=== PATIENT | female | born 1980 | race American Indian/Alaskan Native ===

== ENCOUNTER 2021-02-05 12:05 | Emergency (ER) | payer OTHER ==
--- NOTE | 2021-02-05 13:26 | Event Note ---
ED Screening Note Date of service: 02/05/21 Time: 13:25 ED Screening Note: Patient complains of left-sided chest pain starting this morning Denies shortness of breath History of hypertension and states she has been out of her medications for the past week due to not currently having a primary care doctor Patient normally takes lisinopril and hydrochlorothiazide She also admits to some dizziness This initial assessment/diagnostic orders/clinical plan/treatment(s) is/are subject to change based on patients health status, clinical progression and re- assessment by fellow clinical providers in the ED. Further treatment and workup at subsequent clinical providers discretion. Patient/guardian urged not to elope from the ED as their condition may be serious if not clinically assessed and managed. Initial orders include: Labs EKG Chest x-ray
--- NOTE | 2021-02-05 14:25 | XRay Report ---
CHEST 2 VIEWS INDICATION / CLINICAL INFORMATION: CHEST PAIN. COMPARISON: None available. FINDINGS: SUPPORT DEVICES: None. HEART / MEDIASTINUM: Moderate cardiomegaly LUNGS / PLEURA: No significant pulmonary or pleural abnormality. No pneumothorax. ADDITIONAL FINDINGS: No significant additional findings. IMPRESSION: 1. Cardiomegaly without CHF Signer Name: Saravanan Buitrago MD Signed: 02/05/2021 2:21 PM Workstation Name: [id number]
[2021-02-05 14:30] LABS: Basophils % (Auto) 0.6 % (0.0-1.8); Eosinophils # (Auto) 0.3 K/mm3 (0.0-0.4); Eosinophils % (Auto) 4.8 % (0.0-4.3); Hematocrit 38.4 % (30.3-42.9); Hemoglobin 12.8 gm/dl (10.1-14.3); Lymphocytes % (Auto) 30.4 % (13.4-35.0); Mean Corpuscular HGB Conc 33 % (30-34); Mean Corpuscular Volume 76 fl (79-97); Monocytes # (Auto) 0.6 K/mm3 (0.0-0.8); Monocytes % (Auto) 9.6 % (0.0-7.3); Platelet Count 260 K/mm3 (140-440); Red Blood Count 5.04 M/mm3 (3.65-5.03); Red Cell Distribution Width 16.5 % (13.2-15.2)
[2021-02-05 14:49] LABS: Alanine Aminotransferase 14 units/L (7-56); Albumin 3.8 g/dL (3.9-5); BUN/Creatinine Ratio 14; Blood Urea Nitrogen 17 mg/dL (7-17); Calcium 8.5 mg/dL (8.4-10.2); Hemolysis Index 1
--- NOTE | 2021-02-05 14:55 | Electrocardiograph Report ---
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
[2021-02-05] MEDS ORDERED: ASPIRIN 325 MG TAB PO ONE ×2 (17:01→20:13)
[2021-02-05] MEDS ORDERED: hydrALAZINE 25 MG TAB PO ONE ×2 (17:01→20:13)
--- NOTE | 2021-02-05 20:07 | Emergency Department Report ---
ED Chest Pain HPI - General Chief Complaint: Chest Pain Stated Complaint: CHEST PAIN, HEADACHE Time Seen by Provider: 02/05/21 13:24 Source: patient Mode of arrival: Ambulatory Limitations: No Limitations - History of Present Illness Initial Comments: Patient is a 40-year-old -[place] female with a history of obesity and hypertension and was noncompliant with his medications presents to the ED with complaint of acute onset persistent lightheadedness, headache, elevated blood pressure and intermittent anterior chest pain for the last 3 days. Patient states that in the last 12 hours, her lightheadedness and headache got worse and that she had to leave work to come to the ED for evaluation since her blood pressure was high. Patient states that in the last 24 hours she has not had any chest pain but decided come to the ED anyway for reevaluation and to have her blood pressure medications refilled since she had not taken blood pressure medication for the last 1 week. Patient denies dizziness, change in vision, syncope, palpitations, nausea and vomiting, diaphoresis, neck pain, jaw pain, left arm numbness and tingling or weakness, back pain, abdominal pain, fever and chills or cough. MD Complaint: chest pain, other (elevated BP, Dizziness, ran out of her BP medications) -: Sudden, days(s) (2) Onset: awoke with symptoms Pain Location: left chest Pain Radiation: none Severity: moderate Severity scale (0 -10): 3 Quality: aching Consistency: intermittent Improves With: nothing Worsens With: nothing re: denies: nausea, vomting, diaphoresis, dyspnea, sense of impending doom, other Other Symptoms: denies: cough, fever, syncope, rash, acid taste in mouth, leg swelling, palpitations, burping, other Treatments Prior to Arrival: none Aspirin use within the Past 7 Days: (0) No - Related Data On Oral Contraceptives: No Home Medications Medication Instructions Recorded Confirmed Last Taken Albuterol Sulfate [Proair 90 mcg IH QDAY 02/05/21 02/05/21 Unknown Respiclick] Previous Rx's Medication Instructions Recorded Last Taken Type Aspirin [Aspirin BABY CHEW TAB] 81 mg PO QDAY #120 02/05/21 Unknown Rx NIFEdipine [Nifedipine ER] 30 mg PO QDAY #30 tab 02/05/21 Unknown Rx Spironolactone [Aldactone] 25 mg PO QDAY #30 02/05/21 Unknown Rx carvediloL [Coreg] 25 mg PO Q12H #60 02/05/21 Unknown Rx Allergies Allergy/AdvReac Type Severity Reaction Status Date / Time No Known Allergies Allergy Verified 02/05/21 13:26 Heart Score - HEART Score History: Slightly suspicious EKG: Normal Age: < 45 Risk factors: 1-2 risk factors Troponin: < normal limit HEART Score: 1 - EKG Read Time Time EKG Completed: 00:10 EKG Read Time: 00:19 - Critical Actions Critical Actions: 0-3 pts:0.9-1.7%risk of adverse cardiac event.Candidate for discharge ED Review of Systems ROS: Stated complaint: CHEST PAIN, HEADACHE Other details as noted in HPI Constitutional: malaise, weakness, other (Elevated blood pressure). denies: chills, fever Eyes: denies: eye pain, eye discharge, vision change ENT: denies: ear pain, throat pain Respiratory: denies: cough, shortness of breath, wheezing Cardiovascular: chest pain. denies: palpitations Endocrine: no symptoms reported Gastrointestinal: denies: abdominal pain, nausea, vomiting, diarrhea Genitourinary: denies: urgency, dysuria, discharge Musculoskeletal: denies: back pain, joint swelling, arthralgia Skin: denies: rash, lesions Neurological: other (Lightheadedness). denies: headache, weakness, paresthesias Psychiatric: denies: anxiety, depression Hematological/Lymphatic: denies: easy bleeding, easy bruising ED Past Medical Hx - Past Medical History Hx Hypertension: Yes - Social History Smoking Status: Current Every Day Smoker Substance Use Type: None - Medications Home Medications: Home Medications Medication Instructions Recorded Confirmed Last Taken Type Albuterol Sulfate [Proair 90 mcg IH QDAY 02/05/21 02/05/21 Unknown History Respiclick] Aspirin [Aspirin BABY CHEW TAB] 81 mg PO QDAY #120 02/05/21 Unknown Rx NIFEdipine [Nifedipine ER] 30 mg PO QDAY #30 tab 02/05/21 Unknown Rx Spironolactone [Aldactone] 25 mg PO QDAY #30 02/05/21 Unknown Rx carvediloL [Coreg] 25 mg PO Q12H #60 02/05/21 Unknown Rx ED Physical Exam - General Limitations: No Limitations General appearance: alert, in no apparent distress - Head Head exam: Present: atraumatic, normocephalic, normal inspection - Eye Eye exam: Present: normal appearance, PERRL, EOMI Pupils: Present: normal accommodation - ENT ENT exam: Present: normal exam, normal orophraynx, mucous membranes moist, TM's normal bilaterally, normal external ear exam - Neck Neck exam: Present: normal inspection, full ROM - Respiratory Respiratory exam: Present: normal lung sounds bilaterally. Absent: respiratory distress, wheezes, rales, rhonchi, chest wall tenderness, accessory muscle use, decreased breath sounds, prolonged expiratory - Cardiovascular Cardiovascular Exam: Present: regular rate, normal rhythm, normal heart sounds. Absent: systolic murmur, diastolic murmur, rubs, gallop - GI/Abdominal GI/Abdominal exam: Present: soft, normal bowel sounds. Absent: tenderness, g uarding, rebound, hyperactive bowel sounds, hypoactive bowel sounds, organomegaly, mass - Extremities Exam Extremities exam: Present: normal inspection, full ROM, normal capillary refill - Back Exam Back exam: Present: normal inspection, full ROM. Absent: tenderness, CVA tenderness (R), CVA tenderness (L), muscle spasm, paraspinal tenderness, vertebral tenderness - Neurological Exam Neurological exam: Present: alert, oriented X3, CN II-XII intact, normal gait, reflexes normal - Psychiatric Psychiatric exam: Present: normal affect, normal mood - Skin Skin exam: Present: warm, dry, intact, normal color. Absent: rash ED Course Vital Signs 02/05/21 02/05/21 02/05/21 13:24 20:24 20:30 Temperature 97.9 F Pulse Rate 64 67 Respiratory 18 Rate Blood Pressure 203/112 227/102 Blood Pressure 197/90 [Left] O2 Sat by Pulse 100 Oximetry 02/05/21 02/05/21 02/05/21 21:00 21:30 22:00 Temperature Pulse Rate 61 59 L 57 L Respiratory Rate Blood Pressure Blood Pressure 195/99 190/98 171/96 [Left] O2 Sat by Pulse Oximetry 02/05/21 02/05/21 02/05/21 22:30 23:00 23:13 Temperature Pulse Rate 61 57 L 57 L Respiratory Rate Blood Pressure 184/88 Blood Pressure 169/88 184/88 [Left] O2 Sat by Pulse Oximetry WILLIAM score - William Score Age > 65: (0) No Aspirin use within the Past 7 Days: (0) No 3 or more CAD Risk Factors: (0) No 2 or more Angina events in past 24 hrs: (0) No Known CAD with more than 50% Stenosis: (0) No Elevated Cardiac Markers: (0) No ST Deviation Greater than 0.5mm: (0) No WILLIAM Score: 0 ED Medical Decision Making - Lab Data Result diagrams: 02/05/21 14:10 02/05/21 14:10 - EKG Data Interpretation: normal EKG 02/06/21 00:20 EKG shows normal sinus rhythm with a ventricular rate of 63 bpm, and also LVH but no STEMI or ST depression or pathological Q waves. - Radiology Data Radiology results: report reviewed, image reviewed [facility] [address] [id number] XRay Report Signed Patient: GREG ARITA MR#: [id number] : 1980 Acct:[id number] Age/Sex: 40 / F ADM Date: 02/05/21 Loc: ED Attending Dr: Ordering Physician: OLGA BRICEÑO Date of Service: 02/05/21 Procedure(s): XR chest routine 2V Accession Number(s): [id number] cc: OLGA BRICEÑO Fluoro Time In Minutes: CHEST 2 VIEWS INDICATION / CLINICAL INFORMATION: CHEST PAIN. COMPARISON: None available. FINDINGS: SUPPORT DEVICES: None. HEART / MEDIASTINUM: Moderate cardiomegaly LUNGS / PLEURA: No significant pulmonary or pleural abnormality. No pneum othorax. ADDITIONAL FINDINGS: No significant additional findings. IMPRESSION: 1. Cardiomegaly without CHF Signer Name: Saravanan Buitrago MD Signed: 02/05/2021 2:21 PM Workstation Name: [id number] Transcribed By: TL Dictated By: Saravanan Buitrago MD Electronically Authenticated By: Saravanan Buitrago MD Signed Date/Time: 02/05/211420 DD/ 19 TD/TT: Print - Medical Decision Making This is a 40-year-old -[place] female with a history of obesity and hypertension and was noncompliant with his medications presents to the ED with complaint of acute onset persistent lightheadedness, headache, elevated blood pressure and intermittent anterior chest pain for the last 3 days. Patient states that in the last 12 hours, her lightheadedness and headache got worse and that she had to leave work to come to the ED for evaluation since her blood pressure was high. Patient states that in the last 24 hours she has not had any chest pain but decided come to the ED anyway for reevaluation and to have her blood pressure medications refilled since she had not taken blood pressure medication for the last 1 week. In the ED, patient is alert and oriented x3 and is not in any distress but hypertensive in triage. Chest x-ray showed cardiomegaly without CHF. Lab test results were reviewed and are all non actionable including initial and 3-hour troponin levels. Initial EKG showed sinus rhythm with a ventricular rate of 63 bpm and LVH but no ST elevation or any pathological Q waves. The repeat EKG after on the lab test results were performed showed sinus rhythm with a ventricular rate of 63 bpm with probable LVH and secondary repolarization abnormalities. There is no ST elevation or depression or pathological Q waves. Lab test results also showed mild hypokalemia of 3.2 mmol/L and elevated BNP of 797.0. Patient was treated in the ED with aspirin and also treated with hydralazine 50 mg p.o. x1 for hypertension. On reevaluation, patient's blood pressure improved with medications, and patient's heart score is 1 and is PERC negative per Wells criteria. Patient was discharged home on prescriptions of her blood pressure medications and given referral to the emergency department rn on-call Dr. Leggett for follow-up in 2 to 3 days for possible outpatient stress test. Patient was advised to return to the emergency department immediately if her symptoms get worse. - Differential Diagnosis ACS; CHF; PE; dissection; pneumonia; anxiety; Critical care attestation.: If time is entered above; I have spent that time in minutes in the direct care of this critically ill patient, excluding procedure time. ED Disposition Clinical Impression: Atypical chest pain, Uncontrolled stage 2 hypertension, Episodic li ghtheadedness Disposition: DC-01 TO HOME OR SELFCARE Is pt being admited?: No Does the pt Need Aspirin: No Condition: Stable Instructions: Nonspecific Chest Pain, Adult, Hypertension, Adult, Teen-ho-Lntz, Hypertension (ED) Additional Instructions: All lab test results were reviewed and are all nonactionable except for mild hypokalemia. Therefore take medication with food, drink plenty of fluids and follow-up with the emergency department rn Dr. Leggett in 24 to 48 hours for reevaluation and for possible stress test. Follow-up with the primary care physician in 3 to 5 days for reevaluation. Return to the ED immediately if symptoms get worse. Prescriptions: Spironolactone [Aldactone] 25 mg PO QDAY #30 Aspirin [Aspirin BABY CHEW TAB] 81 mg PO QDAY #120 carvediloL [Coreg] 25 mg PO Q12H #60 NIFEdipine [Nifedipine ER] 30 mg PO QDAY #30 tab Referrals: DIOGO GUPTA MD [Staff Physician] - 3-5 Days VICTORINO LEGGETT MD [Staff Physician] - [facility] Forms: Work/School Release Form(ED) Time of Disposition: 23:47 Print Language: SPANISH
[2021-02-05] MEDS ORDERED: FUROSEMIDE 20 MG TAB PO ONE (20:27)
[2021-02-05] MEDS ORDERED: POTASSIUM CHLORIDE ER 20 MEQ TAB PO ONE (20:27)
[2021-02-05] MEDS ORDERED: amLODIPine 5 MG TAB PO ONE (23:09)
[2021-02-06 01:06] VITALS: BP 169/80
--- NOTE | 2021-02-06 10:08 | Electrocardiograph Report ---
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
== END 2021-02-06 00:55 | disposition home or self-care (01) ==
LOC: ED 12:05
DX: I10 Essential (primary) hypertension (principal); R42 Dizziness and giddiness; R07.89 Other chest pain; F17.200 Nicotine dependence, unspecified, uncomplicated; Z79.82 Long term (current) use of aspirin; Z79.899 Other long term (current) drug therapy
CPT/HCPCS: 36415; 71046; 80053; 83880; 84484; 85025; 93005; 99284

== ENCOUNTER 2021-02-23 07:55 | Emergency (ER) | payer OTHER ==
[2021-02-23 09:00] LABS: Basophils # (Auto) 0.1 K/mm3 (0.0-0.1); Eosinophils # (Auto) 0.1 K/mm3 (0.0-0.4); Eosinophils % (Auto) 1.4 % (0.0-4.3); Hematocrit 40.3 % (30.3-42.9); Hemoglobin 13.6 gm/dl (10.1-14.3); Lymphocytes # (Auto) 1.4 K/mm3 (1.2-5.4); Lymphocytes % (Auto) 21.7 % (13.4-35.0); Mean Corpuscular HGB Conc 34 % (30-34); Mean Corpuscular Volume 76 fl (79-97); Monocytes # (Auto) 0.3 K/mm3 (0.0-0.8); Monocytes % (Auto) 5.2 % (0.0-7.3); Platelet Count 292 K/mm3 (140-440); Red Blood Count 5.31 M/mm3 (3.65-5.03); Red Cell Distribution Width 16.4 % (13.2-15.2)
--- NOTE | 2021-02-23 09:00 | Emergency Department Report ---
Blank Doc - Documentation Documentation: This is a 41-year-old female that presents with shortness of breath, chest pain and uncontrolled hypertension. Patient also stated she is depressed and believes that people are out there to get her. Patient otherwise denies any suicidal or homicidal ideation. Patient states she is compliant with her blood pressure medication last dose was taken yesterday 1- This initial assessment/diagnostic orders/clinical plan/ treatment(s) is/are subject to change based on pt's health status, clinical progression and re- assessment by fellow clinical providers in the ED. Further treatment and workup at subsequent clinical provers discretion. Patient/guardians urged not to elope from ED as their condition may be serious if not clinically assessed and managed. 2-cardiac work-up 3-psych work-up with a psych consult needed
[2021-02-23 09:15] LABS: Alanine Aminotransferase 13 units/L (7-56); Albumin 4.4 g/dL (3.9-5); BUN/Creatinine Ratio 11; Blood Urea Nitrogen 18 mg/dL (7-17); Calcium 8.8 mg/dL (8.4-10.2); Hemolysis Index 8
[2021-02-23 09:42] LABS: INR 1.1 (0.87-1.13); Partial Thromboplastin Time 32.9 Sec. (24.2-36.6)
--- NOTE | 2021-02-23 10:09 | XRay Report ---
CHEST 2 VIEWS INDICATION / CLINICAL INFORMATION: Chest Pain. COMPARISON: 02/05/2021 FINDINGS: SUPPORT DEVICES: None. HEART / MEDIASTINUM: No significant abnormality. LUNGS / PLEURA: No significant pulmonary or pleural abnormality. No pneumothorax. ADDITIONAL FINDINGS: No significant additional findings. IMPRESSION: 1. No acute findings. Signer Name: Stephane Agarwal MD Signed: 02/23/2021 10:05 AM Workstation Name: [id number]
[2021-02-23] MEDS ORDERED: hydrALAZINE 20 MG/1 ML INJ IV ONE ×2 (13:05→15:12)
--- NOTE | 2021-02-23 13:10 | Emergency Department Report ---
HPI - General Chief Complaint: High BP Time Seen by Provider: 02/23/21 08:13 - HPI HPI: This is a 41-year-old -French female presents to the emergency department through triage with the complaint of uncontrolled blood pressure and the need for a mental health evaluation. The patient does have a history of hypertension for which she was previously on nifedipine, spironolactone and carvedilol. The patient was seen here 1 month ago. Patient says that she was sent from here to [facility] but it appears that she was discharged from here after being seen for hypertension and hyperglycemia. Apparently she saw somebody through [facility] who stopped her spironolactone. The patient says that she has been otherwise compliant with her nifedipine and carvedilol. She is a tobacco smoker. She admits to some cocaine use including yesterday. She denies any history of alcohol dependence or withdrawal. Patient denies any chest pain, fever, nausea, vomiting or diaphoresis. She does complain of some intermittent left lower back pain as "I have been working every weekend." She denies any problems with bowel or bladder, numbness or paresthesias, or any neurological deficits. In regards to her mental health evaluation, the patient feels that "I am a danger to others and others are a danger to me." Patient has a history of bipolar disorder but has not been on any medication since she got out of custodial. She is unable to tell me exactly when she got out of custodial but it appears to have been at least 1 year because she says that she moved here from [place] 1 year ago and she was in custodial/longterm in [facility]. When asked if the patient has any auditory or visual hallucinations the patient says "sometimes." In terms of being a danger to others the patient says that she has this mental health history and says that she gets easily agitated and "sometimes I want to do something to people but I try to stop myself." In terms of the patient claiming that others are a danger to her, she has once again nonspecific saying that some people out there are "abusers." She denies any suicidal ideations. The patient says that she has no support system as she has no friends or family here. She denies having a primary care physician, psychiatrist, or behavioral center for follow-up. ED Past Medical Hx - Past Medical History Hx Hypertension: Yes - Social History Smoking Status: Current Every Day Smoker Substance Use Type: Alcohol, Cocaine - Medications Home Medications: Home Medications Medication Instructions Recorded Confirmed Last Taken Type Albuterol Sulfate [Proair 90 mcg IH QDAY 02/05/21 02/05/21 Unknown History Respiclick] Aspirin [Aspirin BABY CHEW TAB] 81 mg PO QDAY #120 02/05/21 Unknown Rx Spironolactone [Aldactone] 25 mg PO QDAY #30 02/05/21 Unknown Rx Amlodipine Besylate [Norvasc] 5 mg PO QDAY #30 tablet 02/24/[address] [DepaKOTE DR] 500 mg PO BID #60 tablet 02/24/21 Unknown Rx Mirtazapine Solutab [Remeron 15mg 15 mg PO QHS #30 tab.rapdis 02/24/21 Unknown Rx Solutab] NIFEdipine [Nifedipine ER] 30 mg PO QDAY #30 tab.er.24 02/24/21 Unknown Rx OLANzapine [ZyPREXA] 5 mg PO QHS #30 tablet 02/24/21 Unknown Rx carvediloL [Coreg] 25 mg PO BID #60 tablet 02/24/21 Unknown Rx ED Review of Systems ROS: Stated complaint: BLOOD PRESSURE/SOB Other details as noted in HPI Comment: All other systems reviewed and negative Constitutional: denies: chills, fever Eyes: denies: eye pain, vision change ENT: denies: ear pain, throat pain Respiratory: denies: cough, wheezing Cardiovascular: chest pain (Intermittent). denies: edema Gastrointestinal: denies: abdominal pain, vomiting Genitourinary: denies: dysuria, discharge Musculoskeletal: back pain. denies: arthralgia Skin: denies: rash, lesions Neurological: denies: headache, weakness Physical Exam - Physical Exam Vital Signs: Vital Signs 02/23/21 02/23/21 02/23/21 08:06 12:41 12:51 Temperature 98.9 F Pulse Rate 101 H 74 Respiratory 24 18 Rate Blood Pressure 227/135 Blood Pressure 235/154 [Left] O2 Sat by Pulse 100 98 Oximetry Physical Exam: GENERAL: The patient is well-developed well-nourished. HENT: Normocephalic. Atraumatic. Patient has moist mucous membranes. EYES: Extraocular motions are intact. NECK: Supple. Trachea is midline. CHEST/LUNGS: Clear to auscultation. There is no respiratory distress noted. HEART/CARDIOVASCULAR: Regular. There is no tachycardia. There is no murmur. ABDOMEN: Abdomen is soft, nontender. Patient has normal bowel sounds. There is no abdominal distention. SKIN: Skin is warm and dry. NEURO: The patient is awake, alert, and oriented. The patient is cooperative. The patient has no focal neurologic deficits. Normal speech. MUSCULOSKELETAL: There is no tenderness or deformity. There is no limitation range of motion. Muscle strength 5 out of 5 for upper and lower extremities bilaterally. BACK: No midline thoracic or lumbar tenderness to palpation. There is some reproducible left lumbar paraspinal tenderness to palpation with associated taut musculature. PSYCH: Patient mostly has a flat affect but occasionally appears agitated or irritated. ED Course Vital Signs 02/23/21 02/23/21 02/23/21 08:06 12:41 12:51 Temperature 98.9 F Pulse Rate 101 H 74 Respiratory 24 18 Rate Blood Pressure 227/135 Blood Pressure 235/154 [Left] O2 Sat by Pulse 100 98 Oximetry ED Medical Decision Making - Lab Data Result diagrams: 02/23/21 08:47 02/23/21 08:47 Lab Results 02/23/21 02/23/21 02/23/21 Range/Units 08:47 08:47 08:47 WBC 6.3 (4.5-11.0) K/mm3 RBC 5.31 H (3.65-5.03) M/mm3 Hgb 13.6 (10.1-14.3) gm/dl Hct 40.3 (30.3-42.9) % MCV 76 L (79-97) fl MCH 26 L (28-32) pg MCHC 34 (30-34) % RDW 16.4 H (13.2-15.2) % Plt Count 292 (140-440) K/mm3 Lymph % (Auto) 21.7 (13.4-35.0) % Kay % (Auto) 5.2 (0.0-7.3) % Eos % (Auto) 1.4 (0.0-4.3) % Baso % (Auto) 1.0 (0.0-1.8) % Lymph # (Auto) 1.4 (1.2-5.4) K/mm3 Kay # (Auto) 0.3 (0.0-0.8) K/mm3 Eos # (Auto) 0.1 (0.0-0.4) K/mm3 Baso # (Auto) 0.1 (0.0-0.1) K/mm3 Seg Neutrophils % 70.7 H (40.0-70.0) % Seg Neutrophils # 4.4 (1.8-7.7) K/mm3 PT 14.8 (12.2-14.9) Sec. INR 1.10 (0.87-1.13) APTT 32.9 (24.2-36.6) Sec. Sodium (137-145) mmol/L Potassium (3.6-5.0) mmol/L Chloride (98-107) mmol/L Carbon Dioxide (22-30) mmol/L Anion Gap mmol/L BUN (7-17) mg/dL Creatinine (0.6-1.2) mg/dL Estimated GFR ml/min BUN/Creatinine Ratio % Glucose (65-100) mg/dL Calcium (8.4-10.2) mg/dL Total Bilirubin (0.1-1.2) mg/dL AST (5-40) units/L ALT (7-56) units/L Alkaline Phosphatase (35-129) units/L Total Creatine Kinase (30-135) units/L Troponin T (0.00-0.029) ng/mL Total Protein (6.3-8.2) g/dL Albumin (3.9-5) g/dL Albumin/Globulin Ratio % HCG, Qual Negative (Negative) Salicylates (2.8-20.0) mg/dL Acetaminophen (10.0-30.0) ug/mL Plasma/Serum Alcohol (0-0.07) % 02/23/21 02/23/21 02/23/21 Range/Units 08:47 08:47 08:47 WBC (4.5-11.0) K/mm3 RBC (3.65-5.03) M/mm3 Hgb (10.1-14.3) gm/dl Hct (30.3-42.9) % MCV (79-97) fl MCH (28-32) pg MCHC (30-34) % RDW (13.2-15.2) % Plt Count (140-440) K/mm3 Lymph % (Auto) (13.4-35.0) % Kay % (Auto) (0.0-7.3) % Eos % (Auto) (0.0-4.3) % Baso % (Auto) (0.0-1.8) % Lymph # (Auto) (1.2-5.4) K/mm3 Kay # (Auto) (0.0-0.8) K/mm3 Eos # (Auto) (0.0-0.4) K/mm3 Baso # (Auto) (0.0-0.1) K/mm3 Seg Neutrophils % (40.0-70.0) % Seg Neutrophils # (1.8-7.7) K/mm3 PT (12.2-14.9) Sec. INR (0.87-1.13) APTT (24.2-36.6) Sec. Sodium 137 (137-145) mmol/L Potassium 3.5 L (3.6-5.0) mmol/L Chloride 99.0 (98-107) mmol/L Carbon Dioxide 26 (22-30) mmol/L Anion Gap 16 mmol/L BUN 18 H (7-17) mg/dL Creatinine 1.6 H (0.6-1.2) mg/dL Estimated GFR 43 ml/min BUN/Creatinine Ratio 11 % Glucose 128 H (65-100) mg/dL Calcium 8.8 (8.4-10.2) mg/dL Total Bilirubin 0.20 (0.1-1.2) mg/dL AST 17 (5-40) units/L ALT 13 (7-56) units/L Alkaline Phosphatase 84 (35-129) units/L Total Creatine Kinase (30-135) units/L Troponin T < 0.010 (0.00-0.029) ng/mL Total Protein 6.9 (6.3-8.2) g/dL Albumin 4.4 (3.9-5) g/dL Albumin/Globulin Ratio 1.8 % HCG, Qual (Negative) Salicylates < 0.3 L (2.8-20.0) mg/dL Acetaminophen 5.0 L (10.0-30.0) ug/mL Plasma/Serum Alcohol (0-0.07) % 02/23/21 02/23/21 02/23/21 Range/Units 08:47 13:27 13:27 WBC (4.5-11.0) K/mm3 RBC (3.65-5.03) M/mm3 Hgb (10.1-14.3) gm/dl Hct (30.3-42.9) % MCV (79-97) fl MCH (28-32) pg MCHC (30-34) % RDW (13.2-15.2) % Plt Count (140-440) K/mm3 Lymph % (Auto) (13.4-35.0) % Kay % (Auto) (0.0-7.3) % Eos % (Auto) (0.0-4.3) % Baso % (Auto) (0.0-1.8) % Lymph # (Auto) (1.2-5.4) K/mm3 Kay # (Auto) (0.0-0.8) K/mm3 Eos # (Auto) (0.0-0.4) K/mm3 Baso # (Auto) (0.0-0.1) K/mm3 Seg Neutrophils % (40.0-70.0) % Seg Neutrophils # (1.8-7.7) K/mm3 PT (12.2-14.9) Sec. INR (0.87-1.13) APTT (24.2-36.6) Sec. Sodium (137-145) mmol/L Potassium (3.6-5.0) mmol/L Chloride (98-107) mmol/L Carbon Dioxide (22-30) mmol/L Anion Gap mmol/L BUN (7-17) mg/dL Creatinine (0.6-1.2) mg/dL Estimated GFR ml/min BUN/Creatinine Ratio % Glucose (65-100) mg/dL Calcium (8.4-10.2) mg/dL Total Bilirubin (0.1-1.2) mg/dL AST (5-40) units/L ALT (7-56) units/L Alkaline Phosphatase (35-129) units/L Total Creatine Kinase 234 H (30-135) units/L Troponin T < 0.010 (0.00-0.029) ng/mL Total Protein (6.3-8.2) g/dL Albumin (3.9-5) g/dL Albumin/Globulin Ratio % HCG, Qual (Negative) Salicylates (2.8-20.0) mg/dL Acetaminophen (10.0-30.0) ug/mL Plasma/Serum Alcohol < 0.01 (0-0.07) % - EKG Data -: EKG Interpreted by Me EKG shows normal: sinus rhythm, axis, intervals, QRS complexes (LVH), ST-T waves (J-point elevation to septal leads) Rate: normal - EKG Data When compared to previous EKG there are: no significant change Interpretation: unchanged when compared t (02/05/21), other (Sinus rhythm, rate of 95 bpm, normal axis, normal intervals, LVH, J-point elevation to the septal leads. No ST elevation MD.) - Radiology Data Radiology results: image reviewed interpreted by me: Chest x-ray does not show any acute process. There are no pleural effusions, obvious pneumonia and there is no pneumothorax. - Medical Decision Making Regarding the patient's hypertension, the patient says that she has been compliant with her nifedipine and Coreg but has not received the spironolactone for about 1 month. Also, the patient does admit to some intermittent cocaine use. The patient has been given 2 doses of hydralazine and will be given a dose of labetalol. Her blood pressure has come down to a more reasonable level and is currently 188/95 before the labetalol. The patient's labs have been mostly unremarkable except for some renal insufficiency with a GFR of 43 and a creatinine of 1.6. This is most likely secondary to her hypertension. No reports of decreased urine output, but I am waiting for a urine sample for urinalysis and UDS. I do not believe that this level of renal insufficiency requires a medical admission at this time. She will be given an outpatient referral for nephrology and we discussed avoiding NSAIDs. Whether or not the patient requires inpatient stabilization, versus outpatient psychiatric treatment, the patient has been given a prescription for her nifedipine and Coreg, and I have added a medium dose of amlodipine. The patient does not appear to require a medical admission at this time due to the blood pressure or renal insufficiency. Discharge instructions also include to avoid any further illicit drug use, salt or caffeine use, and to keep a blood pressure log. She has been given outpatient referrals for primary care including a private physician and a clinic. The patient also presents for a mental health evaluation. I am waiting for the assessment to be completed. The patient has a history of bipolar disorder and has been noncompliant with medication. She says that she has auditory and visual hallucinations "sometimes." She comes in complaining of feeling like she is a danger to others as if she could suddenly snap and harm someone. She also feels that others are a danger to her. She denies any suicidal ideations. 02/24/21 9 pm: In reviewing the rest of the patient's ED course, after it was signed out to my colleague Dr. Watkins, it appears that the patient did not have a full psychiatric/mental health evaluation until earlier today due to the elevated blood pressure. However, she was seen by the mental health electrocardiographic technician and the psychiatric PA, and they did not feel that the patient required inpatient stabilization or meet criteria to be a 1013. I do not disagree with his assessment as the patient only spoke of having the capability of being a danger to someone and not having any active suicidal or homicidal ideations. Critical Care Time: No Critical care attestation.: If time is entered above; I have spent that time in minutes in the direct care of this critically ill patient, excluding procedure time. ED Disposition Clinical Impression: Uncontrolled hypertension, Renal insufficiency, History of bipolar disorder Disposition: DC-01 TO HOME OR SELFCARE Is pt being admited?: No Condition: Stable Instructions: Managing Your Hypertension, Hypertension, Adult, Hypertension (ED) Additional Instructions: Please follow-up with a primary care physician. I have given you a referral for a local primary care physician, Dr. Rich, and a primary care clinic, [facility]. Your labs today showed a mild decrease in your kidney function. I have given you a referral for a local real estate associate, kidney doctor, Dr. Rios. Please avoid any NSAIDs such as ibuprofen, Aleve, naproxen, Naprosyn, Midol, as this can worsen your kidney function. Please avoid any further illicit drug use. Try to stay away from foods that are high in salt and caffeinated products. Keep a blood pressure log. Take your blood pressure medications as prescribed. I have added a blood pressure medication called amlodipine/Norvasc. This medication is taken once per day, usually in the morning. Please follow-up with any outpatient psychiatric referrals that you have been given. Just in case, I have also given you a referral for the [facility] facility. Return to the emergency department with any worsening of your symptoms, new or concerning symptoms not addressed during this current emergency department visit, or with any acute distress. Per psych provider, Juan Roldan pt has been cleared by psych. Outpatient resources p rovided to include psychiatric providers and PA Crisis line. Professional and Agency Contacts To help [facility](05/04) [place] Crisis Line: Suicide Prevention Line: Crisis Text Line: Text START to 070731 Emergency: 911 Outpatient COMMUNITY Behavioral Health Resources: NEEL: [facility] [address], [place] [address] [place]: [facility] [address] [place] [address] LYND[place]: [facility] [address] [place] [address] Wednesday thru Wednesday - 8am - 5pm [facility] Address: [address] [place] [address] [place]AR[place]: [facility] Address: [address] [place] [address] Wednesday thru Wednesday- 7am-2pm [facility] Address: [address] [place] [address] Wednesday thru Wednesday: 8:30AM-5PM Prescriptions: Mirtazapine Solutab [Remeron 15mg Solutab] 15 mg PO QHS #30 tab.rapdis OLANzapine [ZyPREXA] 5 mg PO QHS #30 tablet carvediloL [Coreg] 25 mg PO BID #[address] [Rita CARLSON] 500 mg PO BID #60 tablet NIFEdipine [Nifedipine ER] 30 mg PO QDAY #30 tab.er.24 Amlodipine Besylate [Norvasc] 5 mg PO QDAY #30 tablet Referrals: PRIMARY CARE, [Primary Care Provider] - 3-5 Days SIGIFREDO RIOS MD [Staff Physician] - 3-5 Days DIOGO RICH MD [Staff Physician] - 3-5 Days [facility] [Provider Group] - 3-5 Days Forms: Work/School Release Form(ED) - Assessment Assessment Interval: Baseline - Level of Consciousness 1a. Level of Consciousness: alert/keenly responsive - LOC Questions 1b. LOC Questions: answers both correctly - LOC Command 1c. LOC Commands: performs tasks correctly - Best Gaze 2. Best Gaze: normal - Visual 3. Visual: no visual loss - Facial Palsy 4. Facial Palsy: normal symmetrical movement - Motor Arm 5a. Motor Arm Left: no drift 5b. Motor Arm Right: no drift - Motor Leg 6a. Motor Leg Left: no drift 6b. Motor Leg Right: no drift - Limb Ataxia 7. Limb Ataxia: absent - Sensory 8. Sensory: normal - Best Language 9. Best Language: no aphasia - Dysarthria 10. Dysarthria: normal - Extinction and Inattention 11. Extinction/Inattention: no abnormality - Scoring Total Score: 0 Stroke Severity: No Stroke Symptoms HEART Score - HEART Score History: Slightly suspicious EKG: Non-specific Age: < 45 Risk factors: 1-2 risk factors Troponin: Troponin T < 0.010 ng/mL (0.00-0.029) 02/23/21 13:27 Troponin: < normal limit HEART Score: 2 - Critical Actions Critical Actions: 0-3 pts:0.9-1.7%risk of adverse cardiac event.Candidate for discharge
[2021-02-23] MEDS ORDERED: cloNIDine 0.1 MG TAB PO ONE (19:08)
--- NOTE | 2021-02-23 20:59 | Event Note ---
Date: 02/23/21 Spoke with psych recorder helper seismograph patient is endorsing suicidal ideation I will sign a 1013 patient also needs a Covid swab as well.
[2021-02-24 08:32] LABS: Amphetamine Screen,Urine Negative; Benzodiazepines Screen,Urine Negative; Cannabinoid Screen,Urine Negative; Methadone Screen,Urine Negative; Opiate Screen,Urine Negative
[2021-02-24 08:38] LABS: Bacteria,Urine 1+ /HPF (Negative); Mucus,Urine FEW /HPF
[2021-02-24 08:39] LABS: Bilirubin,Urine NEG (Negative); Blood,Urine NEG (Negative); Color,Urine Straw (Yellow); Urobilinogen,Urine < 2.0 mg/dL (<2.0)
[2021-02-24 08:46] LABS: Cocaine Screen,Urine PRESUMPTIVE POSITIVE
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
--- NOTE | 2021-02-24 13:32 | Event Note ---
Date: 02/24/21 The patient was evaluated in the emergency department for symptoms described in the history of present illness. He/she was evaluated in the context of the global COVID-19 pandemic, which necessitated consideration that the patient might be at risk for infection with the virus that causes COVID-19. Institutional protocols and algorithms that pertain to the evaluation of patients at risk for COVID-19 are in a state of rapid change based on information released by regulatory bodies including the CDC and federal and state organizations. These policies and algorithms were followed during the patient's care in the emergency department. Please note that these policies, procedures and recommendations changed on a rapid basis. Psychiatric recommendations reviewed and appreciated. Initial ER documentation reviewed and appreciated. Patient was medically cleared on their initial ER evaluation. Patient had antihypertensive medications written for by her original treating physician. The psychiatry team has recommended outpatient follow-up. Discharge with outpatient mental health and primary care follow-up. Nursing team has not endorsed any concerns or complaints this afternoon. Vital Signs 02/23/21 02/23/21 02/23/21 08:06 12:41 12:51 Temperature 98.9 F Pulse Rate 101 H 74 Respiratory 24 18 Rate Blood Pressure 227/135 Blood Pressure 235/154 [Left] O2 Sat by Pulse 100 98 Oximetry 02/23/21 02/23/21 02/23/21 15:45 18:32 21:34 Temperature Pulse Rate 93 H 94 H 84 Respiratory 18 Rate Blood Pressure 208/98 Blood Pressure 199/87 169/94 [Left] O2 Sat by Pulse 98 Oximetry 02/24/21 02/24/21 02/24/21 01:56 06:53 07:48 Temperature 98.1 F 98 F Pulse Rate 95 H 69 79 Respiratory 18 18 Rate Blood Pressure Blood Pressure 175/88 173/99 155/78 [Left] O2 Sat by Pulse 98 98 99 Oximetry Lab Results 02/23/21 02/23/21 02/23/21 Range/Units 08:00 08:00 08:47 WBC (4.5-11.0) K/mm3 RBC (3.65-5.03) M/mm3 Hgb (10.1-14.3) gm/dl Hct (30.3-42.9) % MCV (79-97) fl MCH (28-32) pg MCHC (30-34) % RDW (13.2-15.2) % Plt Count (140-440) K/mm3 Lymph % (Auto) (13.4-35.0) % [place] % (Auto) (0.0-7.3) % Eos % (Auto) (0.0-4.3) % Baso % (Auto) (0.0-1.8) % Lymph # (Auto) (1.2-5.4) K/mm3 [place] # (Auto) (0.0-0.8) K/mm3 Eos # (Auto) (0.0-0.4) K/mm3 Baso # (Auto) (0.0-0.1) K/mm3 Seg Neutrophils % (40.0-70.0) % Seg Neutrophils # (1.8-7.7) K/mm3 PT (12.2-14.9) Sec. INR (0.87-1.13) APTT (24.2-36.6) Sec. Sodium (137-145) mmol/L Potassium (3.6-5.0) mmol/L Chloride (98-107) mmol/L Carbon Dioxide (22-30) mmol/L Anion Gap mmol/L BUN (7-17) mg/dL Creatinine (0.6-1.2) mg/dL Estimated GFR ml/min BUN/Creatinine Ratio % Glucose (65-100) mg/dL Calcium (8.4-10.2) mg/dL Total Bilirubin (0.1-1.2) mg/dL AST (5-40) units/L ALT (7-56) units/L Alkaline Phosphatase (35-129) units/L Total Creatine Kinase (30-135) units/L Troponin T (0.00-0.029) ng/mL Total Protein (6.3-8.2) g/dL Albumin (3.9-5) g/dL Albumin/Globulin Ratio % HCG, Qual Negative (Negative) Urine Color Straw (Yellow) Urine Turbidity Clear (Clear) Urine pH 6.0 (5.0-7.0) Ur Specific [place] 1.011 (1.003-1.030) Urine Protein 30 mg/dl (Negative) mg/dL Urine Glucose (UA) Neg (Negative) mg/dL Urine Ketones Neg (Negative) mg/dL Urine Blood Neg (Negative) Urine Nitrite Neg (Negative) Ur Reducing Substances Not Reportable Urine Bilirubin Neg (Negative) Urine Ictotest Not Reportable Urine Urobilinogen < 2.0 (<2.0) mg/dL Ur Leukocyte Esterase Tr (Negative) Urine WBC (Auto) 10.0 H (0.0-6.0) /HPF Urine RBC (Auto) 5.0 (0.0-6.0) /HPF U Epithel Cells (Auto) 1.0 (0-13.0) /HPF Urine Bacteria (Auto) 1+ (Negative) /HPF Urine Mucus Few /HPF Salicylates (2.8-20.0) mg/dL Urine Opiates Screen Negative Urine Methadone Screen Negative Acetaminophen (10.0-30.0) ug/mL Ur Barbiturates Screen Negative Ur Phencyclidine Scrn Negative Ur Amphetamines Screen Negative U Benzodiazepines Scrn Negative Urine Cocaine Screen Presumptive positive U Marijuana (THC) Screen Negative Drugs of Abuse Note Disclamer Plasma/Serum Alcohol (0-0.07) % 02/23/21 02/23/21 02/23/21 Range/Units 08:47 08:47 08:47 WBC 6.3 (4.5-11.0) K/mm3 RBC 5.31 H (3.65-5.03) M/mm3 Hgb 13.6 (10.1-14.3) gm/dl Hct 40.3 (30.3-42.9) % MCV 76 L (79-97) fl MCH 26 L (28-32) pg MCHC 34 (30-34) % RDW 16.4 H (13.2-15.2) % Plt Count 292 (140-440) K/mm3 Lymph % (Auto) 21.7 (13.4-35.0) % [place] % (Auto) 5.2 (0.0-7.3) % Eos % (Auto) 1.4 (0.0-4.3) % Baso % (Auto) 1.0 (0.0-1.8) % Lymph # (Auto) 1.4 (1.2-5.4) K/mm3 [place] # (Auto) 0.3 (0.0-0.8) K/mm3 Eos # (Auto) 0.1 (0.0-0.4) K/mm3 Baso # (Auto) 0.1 (0.0-0.1) K/mm3 Seg Neutrophils % 70.7 H (40.0-70.0) % Seg Neutrophils # 4.4 (1.8-7.7) K/mm3 PT 14.8 (12.2-14.9) Sec. INR 1.10 (0.87-1.13) APTT 32.9 (24.2-36.6) Sec. Sodium 137 (137-145) mmol/L Potassium 3.5 L (3.6-5.0) mmol/L Chloride 99.0 (98-107) mmol/L Carbon Dioxide 26 (22-30) mmol/L Anion Gap 16 mmol/L BUN 18 H (7-17) mg/dL Creatinine 1.6 H (0.6-1.2) mg/dL Estimated GFR 43 ml/min BUN/Creatinine Ratio 11 % Glucose 128 H (65-100) mg/dL Calcium 8.8 (8.4-10.2) mg/dL Total Bilirubin 0.20 (0.1-1.2) mg/dL AST 17 (5-40) units/L ALT 13 (7-56) units/L Alkaline Phosphatase 84 (35-129) units/L Total Creatine Kinase (30-135) units/L Troponin T < 0.010 (0.00-0.029) ng/mL Total Protein 6.9 (6.3-8.2) g/dL Albumin 4.4 (3.9-5) g/dL Albumin/Globulin Ratio 1.8 % HCG, Qual (Negative) Urine Color (Yellow) Urine Turbidity (Clear) Urine pH (5.0-7.0) Ur Specific [place] (1.003-1.030) Urine Protein (Negative) mg/dL Urine Glucose (UA) (Negative) mg/dL Urine Ketones (Negative) mg/dL Urine Blood (Negative) Urine Nitrite (Negative) Ur Reducing Substances Urine Bilirubin (Negative) Urine Ictotest Urine Urobilinogen (<2.0) mg/dL Ur Leukocyte Esterase (Negative) Urine WBC (Auto) (0.0-6.0) /HPF Urine RBC (Auto) (0.0-6.0) /HPF U Epithel Cells (Auto) (0-13.0) /HPF Urine Bacteria (Auto) (Negative) /HPF Urine Mucus /HPF Salicylates (2.8-20.0) mg/dL Urine Opiates Screen Urine Methadone Screen Acetaminophen (10.0-30.0) ug/mL Ur Barbiturates Screen Ur Phencyclidine Scrn Ur Amphetamines Screen U Benzodiazepines Scrn Urine Cocaine Screen U Marijuana (THC) Screen Drugs of Abuse Note Plasma/Serum Alcohol (0-0.07) % 02/23/21 02/23/21 02/23/21 Range/Units 08:47 08:47 08:47 WBC (4.5-11.0) K/mm3 RBC (3.65-5.03) M/mm3 Hgb (10.1-14.3) gm/dl Hct (30.3-42.9) % MCV (79-97) fl MCH (28-32) pg MCHC (30-34) % RDW (13.2-15.2) % Plt Count (140-440) K/mm3 Lymph % (Auto) (13.4-35.0) % [place] % (Auto) (0.0-7.3) % Eos % (Auto) (0.0-4.3) % Baso % (Auto) (0.0-1.8) % Lymph # (Auto) (1.2-5.4) K/mm3 [place] # (Auto) (0.0-0.8) K/mm3 Eos # (Auto) (0.0-0.4) K/mm3 Baso # (Auto) (0.0-0.1) K/mm3 Seg Neutrophils % (40.0-70.0) % Seg Neutrophils # (1.8-7.7) K/mm3 PT (12.2-14.9) Sec. INR (0.87-1.13) APTT (24.2-36.6) Sec. Sodium (137-145) mmol/L Potassium (3.6-5.0) mmol/L Chloride (98-107) mmol/L Carbon Dioxide (22-30) mmol/L Anion Gap mmol/L BUN (7-17) mg/dL Creatinine (0.6-1.2) mg/dL Estimated GFR ml/min BUN/Creatinine Ratio % Glucose (65-100) mg/dL Calcium (8.4-10.2) mg/dL Total Bilirubin (0.1-1.2) mg/dL AST (5-40) units/L ALT (7-56) units/L Alkaline Phosphatase (35-129) units/L Total Creatine Kinase (30-135) units/L Troponin T (0.00-0.029) ng/mL Total Protein (6.3-8.2) g/dL Albumin (3.9-5) g/dL Albumin/Globulin Ratio % HCG, Qual (Negative) Urine Color (Yellow) Urine Turbidity (Clear) Urine pH (5.0-7.0) Ur Specific [place] (1.003-1.030) Urine Protein (Negative) mg/dL Urine Glucose (UA) (Negative) mg/dL Urine Ketones (Negative) mg/dL Urine Blood (Negative) Urine Nitrite (Negative) Ur Reducing Substances Urine Bilirubin (Negative) Urine Ictotest Urine Urobilinogen (<2.0) mg/dL Ur Leukocyte Esterase (Negative) Urine WBC (Auto) (0.0-6.0) /HPF Urine RBC (Auto) (0.0-6.0) /HPF U Epithel Cells (Auto) (0-13.0) /HPF Urine Bacteria (Auto) (Negative) /HPF Urine Mucus /HPF Salicylates < 0.3 L (2.8-20.0) mg/dL Urine Opiates Screen Urine Methadone Screen Acetaminophen 5.0 L (10.0-30.0) ug/mL Ur Barbiturates Screen Ur Phencyclidine Scrn Ur Amphetamines Screen U Benzodiazepines Scrn Urine Cocaine Screen U Marijuana (THC) Screen Drugs of Abuse Note Plasma/Serum Alcohol < 0.01 (0-0.07) % 02/23/21 02/23/21 Range/Units 13:27 13:27 WBC (4.5-11.0) K/mm3 RBC (3.65-5.03) M/mm3 Hgb (10.1-14.3) gm/dl Hct (30.3-42.9) % MCV (79-97) fl MCH (28-32) pg MCHC (30-34) % RDW (13.2-15.2) % Plt Count (140-440) K/mm3 Lymph % (Auto) (13.4-35.0) % [place] % (Auto) (0.0-7.3) % Eos % (Auto) (0.0-4.3) % Baso % (Auto) (0.0-1.8) % Lymph # (Auto) (1.2-5.4) K/mm3 [place] # (Auto) (0.0-0.8) K/mm3 Eos # (Auto) (0.0-0.4) K/mm3 Baso # (Auto) (0.0-0.1) K/mm3 Seg Neutrophils % (40.0-70.0) % Seg Neutrophils # (1.8-7.7) K/mm3 PT (12.2-14.9) Sec. INR (0.87-1.13) APTT (24.2-36.6) Sec. Sodium (137-145) mmol/L Potassium (3.6-5.0) mmol/L Chloride (98-107) mmol/L Carbon Dioxide (22-30) mmol/L Anion Gap mmol/L BUN (7-17) mg/dL Creatinine (0.6-1.2) mg/dL Estimated GFR ml/min BUN/Creatinine Ratio % Glucose (65-100) mg/dL Calcium (8.4-10.2) mg/dL Total Bilirubin (0.1-1.2) mg/dL AST (5-40) units/L ALT (7-56) units/L Alkaline Phosphatase (35-129) units/L Total Creatine Kinase 234 H (30-135) units/L Troponin T < 0.010 (0.00-0.029) ng/mL Total Protein (6.3-8.2) g/dL Albumin (3.9-5) g/dL Albumin/Globulin Ratio % HCG, Qual (Negative) Urine Color (Yellow) Urine Turbidity (Clear) Urine pH (5.0-7.0) Ur Specific [place] (1.003-1.030) Urine Protein (Negative) mg/dL Urine Glucose (UA) (Negative) mg/dL Urine Ketones (Negative) mg/dL Urine Blood (Negative) Urine Nitrite (Negative) Ur Reducing Substances Urine Bilirubin (Negative) Urine Ictotest Urine Urobilinogen (<2.0) mg/dL Ur Leukocyte Esterase (Negative) Urine WBC (Auto) (0.0-6.0) /HPF Urine RBC (Auto) (0.0-6.0) /HPF U Epithel Cells (Auto) (0-13.0) /HPF Urine Bacteria (Auto) (Negative) /HPF Urine Mucus /HPF Salicylates (2.8-20.0) mg/dL Urine Opiates Screen Urine Methadone Screen Acetaminophen (10.0-30.0) ug/mL Ur Barbiturates Screen Ur Phencyclidine Scrn Ur Amphetamines Screen U Benzodiazepines Scrn Urine Cocaine Screen U Marijuana (THC) Screen Drugs of Abuse Note Plasma/Serum Alcohol (0-0.07) %
[2021-02-24 14:56] VITALS: BP 172/86
--- NOTE | 2021-02-27 12:58 | Electrocardiograph Report ---
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
== END 2021-02-24 14:56 | disposition home or self-care (01) ==
LOC: ED 07:55
DX: I10 Essential (primary) hypertension (principal); N28.9 Disorder of kidney and ureter, unspecified; Z20.822 Contact with and (suspected) exposure to COVID-19; F31.9 Bipolar disorder, unspecified; F17.200 Nicotine dependence, unspecified, uncomplicated; F14.90 Cocaine use, unspecified, uncomplicated; Z72.89 Other problems related to lifestyle; Z98.890 Other specified postprocedural states; Z79.899 Other long term (current) drug therapy
CPT/HCPCS: 36415; 36569; 71046; 80053; 80307; 81001; 82550; 84484; 84703; 85025; 85610; 85730; 87086; 93005; 96374; 96375; 99285; J0360; U0003; 80320; G0480